=== PATIENT | male | born 1995 | race African-American/Black ===

== ENCOUNTER 2016-04-07 09:05 | Outpatient (REF) | payer OTHER | END 2017-04-07 | LOC: M LAB REF 09:05 | DX: L02.511 Cutaneous abscess of right hand (principal) ==

== ENCOUNTER → 2017-04-29 | Outpatient (REF) | payer OTHER | LOC: M LAB REF 19:15 | DX: J02.9 Acute pharyngitis, unspecified (principal) | CPT/HCPCS: 87081 ==

== ENCOUNTER 2017-06-20 21:59 | Emergency (ER) | payer OTHER | END 2017-06-21 00:18 | disposition home or self-care (01) | LOC: M ED 06-21 00:18 | DX: M79.602 Pain in left arm (principal) | CPT/HCPCS: 93971 ==